=== PATIENT | female | born 1960 | race Caucasian/White ===

== ENCOUNTER 2018-11-02 07:51 | Emergency (ER) | payer BC ==
[~2018-11-02] VITALS: Ht 170.2 cm; Wt 79.0 kg
[2018-11-02 08:01] VITALS: BP 133/69; PULSE 80; RESP 17; Ht 170.2 cm; Wt 79.0 kg
[2018-11-02] MEDS ORDERED: KETOROLAC 30 MG INJ IM STA (08:41)
[2018-11-02] MEDS ORDERED: TRAM50TA2 PO (09:16)
--- NOTE | 2018-11-02 09:18 | ERD ---
ER Documentation Chief Complaint Chief Complaint LOWER BACK PAIN RADIATING TO LEGS. HX OF SCIATICA HPI 58-year-old female presents the emergency department complaining of low back pain. Patient states she has a history of chronic low back pain. Over the last 4 or 5 days, she has had low back pain rating down her right leg. She reports no fevers, chills, numbness, tingling, bowel or bladder incontinence. ROS All systems reviewed and are negative except as per history of present illness. Medications Home Meds Active Scripts Tramadol HCl (Tramadol HCl) 50 Mg Tablet, 50 MG PO Q4 PRN for PAIN, #10 TAB Prov:JAQUAN OSHEA 11/02/18 Allergies Allergies: Coded Allergies: No Known Allergy (Unverified , 11/02/18) PMhx/Soc Medical and Surgical Hx: pt denies Medical Hx History of Surgery: Yes (Violeta) Anesthesia Reaction: No Hx Alcohol Use: No Hx Substance Use: No Hx Tobacco Use: No Smoking Status: Never smoker Physical Exam Vitals Vital Signs Date Temp Pulse Resp B/P (MAP) Pulse Ox O2 O2 Flow FiO2 Time Delivery Rate 11/02/18 97.9 80 17 133/69 99 08:01 (90) Physical Exam General: Well developed, well nourished in no acute distress HEENT: Scalp atraumatic with no laceration or evidence of skull fracture; no signs of basilar skull fracture. Face symmetric, stable and atraumatic Neck: Full range of motion without discomfort or neurologic symptoms, no midline cervical spine tenderness, step-off, or evidence of significant trauma CV: Regular rate, rhythm, no murmurs appreciated Lungs: Clear to auscultation bilaterally with no chest wall trauma appreciated, chest wall stable with no crepitus Abdomen: Soft, atraumatic and non-tender in all 4 quadrants Extremities: Atraumatic with no bony tenderness or deformity in all 4 extremities, full range of motion throughout all joints; pelvis stable to both AP and lateral compression Back: No thoracic or lumbar midline tenderness, no step-off or evidence of significant trauma Neurologic: Awake, alert and oriented, pupils equal, round and reactive to light, face symmetric, tongue midline, moving all extremities with equal and normal strength, sensory exam grossly non-focal Results 24 hrs Current Medications Medications Dose Sig/Katlin Start Time Status Last (Trade) Ordered Route PRN Stop Time Admin Dose Reason Admin Ketorolac 30 mg ONCE STAT 11/02/18 DC 11/02/18 Tromethamine IM 08:41 08:46 (Toradol) 11/02/18 08:42 Procedures/MDM Patient was taken to a room, seen and examined Reevaluation after pain medication indicates that she is now ambulatory without any obvious neurologic concerns and her pain seems well controlled. Medical decision making: Patient presents today with atraumatic back pain. Although infection, malignancy, GI, , and vascular causes have been considered in this patient, the patients clinical presentation is most consistent with a musculoskeletal cause. There is neither evidence of any acute neurologic damage, nor of loss of function and thus, advanced imaging studies have been deferred. Patient will be treated conservatively with appropriate pain control with precautionary discharge instructions provided. Departure Diagnosis: Primary Impression: Back pain Condition: Stable Patient Instructions: Back Pain (Acute Or Chronic) Additional Instructions: Please continue all your usual medications. Use the prescription pain medication only as necessary if your medications are not working. See your doctor for any further problems or concerns or return here to the emergency department. JAQUAN OSHEA Nov 02, 2018 09:18
== END 2018-11-02 09:25 | disposition home or self-care (01) ==
LOC: FTE 07:51
DX: M54.5 Low back pain (principal)
CPT/HCPCS: 96372; J1885; Z7502